=== PATIENT | male | born 1955 | race Caucasian/White ===

== ENCOUNTER 2025-02-01 09:04 | Day surgery (SDC) | payer MEDICARE, OTHER, SELFPAY ==
[2025-01-25 12:24] VITALS: BMI 20.4
[2025-02-01] VITALS (8 sets, daily range): BP systolic 97–114; BP diastolic 50–62; PULSE 59–69; RESP 13–23; TEMP 36.2–36.7; O2SAT 94–98; BMI 20.4
--- NOTE | 2025-02-01 07:15 | PM.PREOP ---
Pre-operative Note Interval Note History & Physical reviewed/Exam performed by Physician: Yes Changes to H&P: No ASA Class (for procedural sedation): I
[2025-02-01] MEDS: LACTATED RINGERS 1,000 ML 42 ML IV ×2 (09:23→12:19)
[2025-02-01] MEDS: ACETAMINOPHEN 325 MG TABLET 975 MG PO (09:23)
--- NOTE | 2025-02-01 11:07 | SUR.OPER ---
Supine on pink padded OR bed, head on pillow, arms, joints, and IV sites padded padded and tucked at sides, legs uncrossed, safety belt at thigh, tape over blanket over lower legs .
--- NOTE | 2025-02-01 11:08 | SUR.OPER ---
Supine on pink padded OR bed, head on pillow, arms padded and tucked at sides, legs uncrossed, safety belt at thigh, tape over blanket over lower legs. IV site and ports padded and protected.
--- NOTE | 2025-02-01 12:14 | P.OP_ITS ---
Operative Date/Time/Diagnoses Date of procedure: 02/01/25 Time of procedure: 12:14 Pre-op diagnosis: Left inguinal hernia Post-op diagnosis: same (Indirect left inguinal hernia) Procedure & Clinicians Procedure: Laparoscopic left inguinal hernia repair with mesh, TEP Same procedure(s) as scheduled: Yes Indications: 69yo M with symptomatic left inguinal hernia Surgeon: Wisam Tristan Click Yes if Unassisted: Yes Anesthesia Type: General Operative Notes Findings: Indirect left inguinal hernia Closure Type: primary Specimen(s): none sent Applied: none Estimated Blood Loss (mL): 10 Blood products transfused: none Procedure in detail: After informed consent and satisfactory general endotracheal anesthesia, the groins were shaved, prepped and draped in the usual sterile manner. Surgical time-out was performed with all team members in agreement. The patient received appropriate preoperative antibiotics and VTE prophylaxis. The preperitoneal space was entered via an infraumbilical incision. The anterior rectus sheath w as divided and an 0 Vicryl [id number] suture was placed and the preperitoneal space was initially dissected out with a blunt 10 mm instrument. The 10 mm 30 degree lens was inserted through the trocar and additional dissection was carried out. This allowed 2 suprapubic 5mm trocars to be inserted. We used 0.25% Marcaine with epinephrine in the skin and also performed an ilioinguinal block on the left side under direct vision. Once the trocars were in place the patient was placed in Trendelenburg position and the preperitoneal space was further dissected using blunt dissection. We were able to visualize the Bam's ligament, the pubic bone, the direct space, the indirect space and the inferior epigastric vessels considtent with complete dissection of the myopectineal orifice. The patient was noted to have an indirect inguinal hernia sac and in dissecting this off of the cord I entered the peritoneal cavity. The peritoneum was thin. The hernia sac was elongated and had to be marsupialized leaving a small tip of the sac distally on the cord. The remaining sac was twisted and then controlled with an endoloop PDS. For the peritoneal opening I closed this with a 3-0 PDS barbed suture and this closed the defect completely with no opportunity for the mesh to interact with the bowel. I selected the Bard 3D large mesh and secured this into place with blunt dissectors. This covered the direct, indirect and femoral spaces completely. It was noted to lie in a flat position. It extended past the pubic bone in the midline for excellent coverage. Hemostasis was excellent. The pneumoperitoneum was released and the peritoneum was noted to approximate against the mesh nicely and hold it in position. The trocars were removed. There was no bleeding noted at the trocar sites. The 0 Vicryl [id number] suture at the umbilical fascia was tied and there were no palpable fascial defects. The skin incisions were closed using 4-0 Monocryl in a subcuticular manner. The estimated blood loss was minimal. The instrument sponge and needle counts were all correct x2. The patient tolerated the procedure well, was extubated in the operating room and transported to the recovery area in stable condition. Complications: none Post-operative Condition: stable Disposition: PACU Plan for aftercare: PACU then home
== END 2025-02-01 13:05 | disposition home or self-care (01) ==
PROVIDERS: PCP Family Medicine; Referring Provider Surgery; Visit Provider Surgery
PROC: 0YQ64ZZ Repair Left Inguinal Region, Percutaneous Endoscopic Approach (ICD-10-PCS; CPT 49650; principal; 2025-02-01 11:00)
DX: K40.90 Unilateral inguinal hernia, without obstruction or gangrene, not specified as recurrent (principal)
CPT/HCPCS: 49650; C1781; J0690; J1100; J1885; J2405; J2704; J3010

== ENCOUNTER → 2025-03-25 10:54 | Outpatient (CLI) | payer MEDICARE, OTHER, SELFPAY ==
--- NOTE | 2025-03-25 10:56 | DI.US.S_ITS ---
PROCEDURE: US ABD AORTA ANEURYSM SCREEN INDICATIONS: Screening TECHNIQUE: Real time scanning was performed of the aorta and iliac arteries, with image documentation. COMPARISON: None. FINDINGS: Aorta: Proximal aortic diameter measures 2.6 cm. Mid-aorta measures 2.6 cm. Distal aortic diameter is 2.5 cm. Distal abdominal aorta is ectatic. Iliac arteries: Right common iliac artery measures 1.5 cm. Left common iliac artery measures 1.3 cm. IMPRESSION: Ectatic distal abdominal aorta measuring up to 2.5 cm. No abdominal aortic aneurysm. Dictated by: Sima Yeager M.D. on 03/25/2025 at 12:39 Approved by: Sima Yeager M.D. on 03/25/2025 at 12:43
== END ==
LOC: US 10:55
PROVIDERS: PCP Family Medicine; Referring Provider Family Medicine; Visit Provider Family Medicine
DX: Z13.6 Encounter for screening for cardiovascular disorders (principal); I77.811 Abdominal aortic ectasia; Z82.49 Family history of ischemic heart disease and other diseases of the circulatory system
CPT/HCPCS: 76706